=== PATIENT | male | born 1960 | race Caucasian/White ===

== ENCOUNTER 2017-09-30 00:07 | Emergency (ER) | payer OTHER ==
[~2017-09-30] VITALS: Ht 188 cm; Wt 123.2 kg
[~2017-09-30 00:07] MED LIST: ASPIRIN EC325 MG PO; CICLOPIROX30 GM TP; NITROSTAT0.4 MG SL
[2017-09-30 01:32] LABS: PTT 26.6 SEC (25-37)
[2017-09-30 02:11] VITALS: BP 142/83
== END 2017-09-30 02:22 | disposition home or self-care (01) ==
LOC: EME 00:07
PROVIDERS: Physician Assistant Medical
DX: M54.12 Radiculopathy, cervical region (principal); Z98.890 Other specified postprocedural states; Z98.1 Arthrodesis status; Z86.718 Personal history of other venous thrombosis and embolism; I25.2 Old myocardial infarction; Z88.5 Allergy status to narcotic agent
CPT/HCPCS: 85610; 85730; 93971; 99281; 99284